=== PATIENT | male | born 1995 | race Caucasian/White ===

== ENCOUNTER 2016-09-27 09:27 | Emergency (ER) | payer MEDICAID ==
[~2016-09-27] VITALS: Ht 170.2 cm; Wt 71.0 kg
[2016-09-27 09:30] VITALS: BP 127/73
== END 2016-09-27 10:41 | disposition home or self-care (01) ==
LOC: ED 09:56
DX: S39.012A Strain of muscle, fascia and tendon of lower back, initial encounter (principal); S19.9XXA Unspecified injury of neck, initial encounter; S09.90XA Unspecified injury of head, initial encounter; W19.XXXA Unspecified fall, initial encounter; F17.210 Nicotine dependence, cigarettes, uncomplicated; Y93.89 Activity, other specified; Y99.8 Other external cause status; Y92.009 Unspecified place in unspecified non-institutional (private) residence as the place of occurrence of the external cause
CPT/HCPCS: 99281